=== PATIENT | female | born 2000 | race African-American/Black ===

== ENCOUNTER 2021-02-14 | Observation (INO) ==
[2021-02-14] MEDS ORDERED: ALBUT/IPRATROP 3MG/0.5MG NEB 3 ML VIAL INH STA (00:17)
[2021-02-14 00:29] LABS: Basophils # (auto) 0.02 K/uL (0-0.2); Basophils % (auto) 0.2 %; Eosinophils # (auto) 0.08 K/uL (0-0.5); Hematocrit (blood only) 40.9 % (37-47); Hemoglobin 13.1 g/dL (12.0-16.0); Immature Granulocytes # (auto) 0.01 K/uL (0.00-0.02); Immature Granulocytes % (auto) 0.1 %; Lymphocytes # (auto) 3.03 K/uL (1.2-3.4); Lymphocytes % (auto) 36.9 %; Mean Corpuscular Hemoglobin 26.1 pg (25-34); Mean Corpuscular Volume 81.5 fL (80-100); Mean Platelet Volume 9.5 fL (7.4-10.4); Monocytes # (auto) 0.81 K/uL (0.11-0.59); Monocytes % (auto) 9.9 %; Neutrophils # (auto) 4.26 K/uL (1.4-6.5); Neutrophils % (auto) 51.9 %; Platelet Count 366 K/uL (130-400); RDW Coefficient of Variation 15.4 % (11.5-14.5); RDW Standard Deviation 45.4 fL (36.4-46.3); Red Blood Count 5.02 M/uL (4.2-5.4); White Blood Count 8.21 K/uL (4.8-10.8)
[2021-02-14 00:46] LABS: BUN Creatinine Ratio 13.1 (10-20); Blood Urea Nitrogen 11 mg/dl (7-18); Calcium 9.3 mg/dl (8.5-10.1); Carbon Dioxide 25 mmol/L (21-32); Chloride 109 mmol/L (98-107); Creatinine Clr Calc Pharmacy 98.7 ml/min; Est GFR (African American) 111.9 ml/min; Est GFR (Non-African American) 96.6 ml/min; Glucose 96 mg/dl (70-99); Potassium 3.6 mmol/L (3.5-5.1); Sodium 139 mmol/L (136-145)
[2021-02-14 00:50] LABS: Troponin I < 0.015 ng/ml (0-0.045)
[2021-02-14] MEDS ORDERED: KETOROLAC TROMETHAMINE 15 MG/ML VIAL IV STA (00:53)
--- NOTE | 2021-02-14 00:54 | Emergency Department Note ---
History of Present Illness General Chief complaint: Respiratory Distress Stated complaint: STRUGGLING TO BREATH Time Seen by Provider: 02/14/21 00:42 History of Present Illness Maximum Pain Intensity: 10 This is a 20-year-old female that presents to the emergency department via private vehicle with complaints of "struggling to breathe". The patient notes a history of asthma. She states that when she awoke this morning she felt fine. Then she notes that she developed shortness of breath and chest pain. The chest pain is predominantly on the left side. She feels as though she cannot take a deep breath. She has never felt this way before. She notes that the week before this past Thanksgiving she had a fever but no other recent illness. The only long travel was that she had a 3-hour car ride home and then back here to school. Patient did take pantoprazole prior to arrival without relief. Current pain 10. Patient has completed her COVID-19 vaccination series. Patient denies any other pertinent past medical history beyond that of asthma. She does note a history of oral surgery. No allergies. Home Medications Medication Instructions Recorded Confirmed Type albuterol sulfate 90 mcg/actuation 1 inh INHALATION Q4 PRN 02/14/21 02/14/21 History aerosol inhaler norethindrone 1 mg-ethinyl 1 tab PO DAILY 02/14/21 02/14/21 History estradiol 20 mcg (21)-iron 75 mg (7) tablet (03/28 (28)) pantoprazole 20 mg tablet,delayed 20 mg PO DAILY PRN 02/14/21 02/14/21 History release Past Med/Surg History Medical History Asthma Surgical History Hx of oral surgery Social History Smoking Status: Never smoker Feels Safe at Home: Yes Review of Systems A total of 10 systems reviewed and were otherwise negative Physical Exam Vital Signs Vital Signs - 24 hr 02/14/21 00:03 02/14/21 00:23 02/14/21 00:34 Temperature 36.5 C Temperature Source Temporal Artery Scan Pulse Rate 139 H Pulse Rate [Left Finger] Pulse Rhythm [Left Finger] Respiratory Rate 24 Respiratory Effort / Characteristics Labored Short of Breath SOB on Exertion Tripoding Labored SOB on Exertion Respiratory Depth Respiratory Pattern Tachypnea Tachypnea Blood Pressure 126/82 Blood Pressure [Right Arm] Blood Pressure Mean 96 Blood Pressure Mean [Right Arm] Pulse Oximetry 100 Oxygen Delivery Method Room Air Room Air Sepsis Recent Fever Within 48 Hours No Sepsis New/Unexplained Change in Mental Status No Sepsis Action Taken by Nursing No Action Required Oxygen Flow Rate - Titration Pulse Oximetry Post Tiitration 02/14/21 00:35 02/14/21 00:48 02/14/21 01:50 Temperature Temperature Source Pulse Rate Pulse Rate [Left Finger] 116 H Pulse Rhythm [Left Finger] Respiratory Rate 24 Respiratory Effort / Characteristics Respiratory Depth Respiratory Pattern Blood Pressure Blood Pressure [Right Arm] Blood Pressure Mean Blood Pressure Mean [Right Arm] Pulse Oximetry 100 100 99 Oxygen Delivery Method Room Air Room Air Room Air Nasal Cannula Sepsis Recent Fever Within 48 Hours Sepsis New/Unexplained Change in Mental Status Sepsis Action Taken by Nursing Oxygen Flow Rate - Titration 2 Pulse Oximetry Post Tiitration 100 02/14/21 03:19 02/14/21 04:30 Temperature Temperature Source Pulse Rate Pulse Rate [Left Finger] 94 H 95 H Pulse Rhythm [Left Finger] Regular Respiratory Rate 18 20 Respiratory Effort / Characteristics Non-Labored Spontaneous Respiratory Depth Normal Respiratory Pattern Blood Pressure Blood Pressure [Right Arm] 115/77 112/86 Blood Pressure Mean Blood Pressure Mean [Right Arm] 89 94 Pulse Oximetry 100 98 Oxygen Delivery Method Room Air Room Air Sepsis Recent Fever Within 48 Hours Sepsis New/Unexplained Change in Mental Status Sepsis Action Taken by Nursing Oxygen Flow Rate - Titration Pulse Oximetry Post Tiitration VITAL SIGNS - Vital signs and nursing notes were reviewed. Tachycardic, otherwise stable. GENERAL -20-year-old female appearing her stated age who is in no acute distress but does display an increased rate of breathing and tachycardia. Communicates well with provider and answers questions appropriately. SKIN - Without rashes. No meningeal or petechial rash. HEAD - NC/AT. EYES - Sclera anicteric. EARS - No deformities of external structures noted on gross examination bilaterally. NOSE - Midline and without cyanosis. MOUTH/OROPHARYNX - Without perioral cyanosis. NECK - Neck with FROM. No nuchal rigidity. LUNGS - Chest wall symmetric without accessory muscle use, intercostals retractions, or central cyanosis. Normal vesicular breath sounds CTA B/L. No wheezes, rales, or rhonchi appreciated. CARDIAC -tachycardic. No murmur, rubs, or gallops appreciated. EXTREMITIES - No clubbing or peripheral cyanosis. +5/5 strength noted in UE/LE bilaterally. NEUROLOGIC - Cranial nerves II through XII grossly intact. PSYCH - A&O, and cooperates fully with examiner. Pt is very pleasant and interacts well with examiner. Course Administered Medications Discontinued Medications Albuterol (Albut/Ipratrop 3mg/0.5mg Neb 3 Ml Vial) 3 ml INH NOW STA Stop: 02/14/21 00:18 Last Admin: 02/14/21 00:23 Dose: 3 ml Documented by: [id number] Enoxaparin Sodium (Enoxaparin 80 Mg/0.8 Ml Syr) 80 mg SQ NOW ONE Stop: 02/14/21 05:56 Last Admin: 02/14/21 06:29 Dose: 80 mg Documented by: [id number] Enoxaparin Sodium (Enoxaparin Inj 120 Mg/0.8 Ml Syr) Confirm Administered Dose 120 mg .ROUTE .STK-MED ONE Stop: 02/14/21 06:25 Last Admin: 02/14/21 06:29 Dose: Not Given Documented by: [id number] Ioversol (Optiray 320 125ml) 120 ml IV ONCE ONE Stop: 02/14/21 01:55 Last Admin: 02/14/21 01:54 Dose: 120 ml Documented by: [id number] Ketorolac Tromethamine (Ketorolac Tromethamine 15 Mg/Ml Vial) 15 mg IV NOW STA Stop: 02/14/21 00:54 Last Admin: 02/14/21 01:02 Dose: 15 mg Documented by: [id number] Lorazepam (Lorazepam 1 Mg Tab) 0.5 mg SL NOW STA Stop: 02/14/21 01:42 Last Admin: 02/14/21 01:57 Dose: 0.5 mg Documented by: [id number] Medical Decision Making Laboratory Data Result diagrams: 02/14/21 00:15 02/14/21 00:15 Lab Results 02/14/21 02/14/21 02/14/21 Range/Units 00:15 00:15 00:15 WBC 8.21 (4.8-10.8) K/uL RBC 5.02 (4.2-5.4) M/uL Hgb 13.1 (12.0-16.0) g/dL Hct 40.9 (37-47) % MCV 81.5 (80-100) fL MCH 26.1 (25-34) pg MCHC 32.0 (32-36) g/dL RDW Std Deviation 45.4 (36.4-46.3) fL RDW Coeff of Brooke 15.4 H (11.5-14.5) % Plt Count 366 (130-400) K/uL MPV 9.5 (7.4-10.4) fL Immature Gran % (Auto) 0.1 % Neut % (Auto) 51.9 % Lymph % (Auto) 36.9 % [place] % (Auto) 9.9 % Eos % (Auto) 1.0 % Baso % (Auto) 0.2 % Neut # (Auto) 4.26 (1.4-6.5) K/uL Lymph # (Auto) 3.03 (1.2-3.4) K/uL [place] # (Auto) 0.81 H (0.11-0.59) K/uL Eos # (Auto) 0.08 (0-0.5) K/uL Baso # (Auto) 0.02 (0-0.2) K/uL Immature Gran # (Auto) 0.01 (0.00-0.02) K/uL PT (9.0-12.0) Seconds INR (0.9-1.1) APTT (21.0-31.0) Seconds PTT Ratio Protein S Activity Sodium 139 (136-145) mmol/L Potassium 3.6 (3.5-5.1) mmol/L Chloride 109 H (98-107) mmol/L Carbon Dioxide 25 (21-32) mmol/L Anion Gap 5.0 (3-11) BUN 11 (7-18) mg/dl Creatinine 0.87 (0.6-1.2) mg/dl Est Cr Clr Drug Dosing 98.7 ml/min Est GFR ( Amer) 111.9 ml/min Est GFR (Non-Af Amer) 96.6 ml/min BUN/Creatinine Ratio 13.1 (10-20) Glucose 96 (70-99) mg/dl Calcium 9.3 (8.5-10.1) mg/dl Total Bilirubin 0.3 (0.2-1) mg/dl Direct Bilirubin < 0.1 (0-0.2) mg/dl AST 15 (15-37) U/L ALT 34 (12-78) Alkaline Phosphatase 73 (45-117) U/L Troponin I < 0.015 (0-0.045) ng/ml Total Protein 7.7 (6.4-8.2) gm/dl Albumin 3.2 L (3.4-5.0) gm/dl TSH 1.710 (0.300-4.500) uIu/ml HCG, Qual Negative (Negative) SARS-CoV-2 (PCR) (Negative) Influenza Type A (PCR) (Neg) Influenza Type B (PCR) (Neg) RSV (RT-PCR) (Neg) 02/14/21 02/14/21 02/14/21 Range/Units 00:15 01:03 03:17 WBC (4.8-10.8) K/uL RBC (4.2-5.4) M/uL Hgb (12.0-16.0) g/dL Hct (37-47) % MCV (80-100) fL MCH (25-34) pg MCHC (32-36) g/dL RDW Std Deviation (36.4-46.3) fL RDW Coeff of Brooke (11.5-14.5) % Plt Count (130-400) K/uL MPV (7.4-10.4) fL Immature Gran % (Auto) % Neut % (Auto) % Lymph % (Auto) % [place] % (Auto) % Eos % (Auto) % Baso % (Auto) % Neut # (Auto) (1.4-6.5) K/uL Lymph # (Auto) (1.2-3.4) K/uL [place] # (Auto) (0.11-0.59) K/uL Eos # (Auto) (0-0.5) K/uL Baso # (Auto) (0-0.2) K/uL Immature Gran # (Auto) (0.00-0.02) K/uL PT 10.0 (9.0-12.0) Seconds INR 1.0 (0.9-1.1) APTT 25.7 (21.0-31.0) Seconds PTT Ratio 1.0 Protein S Activity Cancelled Sodium (136-145) mmol/L Potassium (3.5-5.1) mmol/L Chloride (98-107) mmol/L Carbon Dioxide (21-32) mmol/L Anion Gap (3-11) BUN (7-18) mg/dl Creatinine (0.6-1.2) mg/dl Est Cr Clr Drug Dosing ml/min Est GFR ( Amer) ml/min Est GFR (Non-Af Amer) ml/min BUN/Creatinine Ratio (10-20) Glucose (70-99) mg/dl Calcium (8.5-10.1) mg/dl Total Bilirubin (0.2-1) mg/dl Direct Bilirubin (0-0.2) mg/dl AST (15-37) U/L ALT (12-78) Alkaline Phosphatase (45-117) U/L Troponin I (0-0.045) ng/ml Total Protein (6.4-8.2) gm/dl Albumin (3.4-5.0) gm/dl TSH (0.300-4.500) uIu/ml HCG, Qual (Negative) SARS-CoV-2 (PCR) NEGATIVE (Negative) Influenza Type A (PCR) Negative (Neg) Influenza Type B (PCR) Negative (Neg) RSV (RT-PCR) Negative (Neg) Imaging Data Radiologist's Impression: Chest CTA 02/14/21 00:53 CT angio chest PE protocol CT DOSE: 353.47 mGy.cm HISTORY: 20 years-old Female with dyspnea, tachycardia. Acute shortness of breath with tachycardia and chest pain TECHNIQUE: Multiple CTA images of the chest were obtained after the intravenous administration of 120 ml Optiray. Coronal and sagittal MIPS were obtained from the axial data set and were submitted for review. All measurements were obtained according to NASCET criteria. A dose lowering technique was utilized adhering to the principles of ALARA. COMPARISON: Doppler study of same day FINDINGS: CTA: The heart is normal in size. There is no pericardial effusion. No thoracic aortic aneurysm or dissection. Satisfactory opacification of the pulmonary artery. Rest by motion artifact limits evaluation of the segmental and subsegmental branches. Segmental and subsegmental pulmonary emboli are noted within the left lower lobe. Possible additional small pulmonary emboli within the left upper lobe. No central pulmonary emboli are identified. No evidence of right heart strain. Normal thoracic aorta.Heart size is normal. CT CHEST: Unremarkable thyroid. Residual thymic tissue of the anterior mediastinum. No adenopathy. Trace left pleural effusion. Wedge-shaped 2.6 cm consolidation of the basal left lower lobe on image 53 series 4 with surrounding groundglass opacity. The central airways are patent. There is heterogeneity of the liver with suggestion of vascular shunting/perfu hi defect. Questioned hepatic steatosis. Unremarkable soft tissues. There is no acute fracture. IMPRESSION: 1. Segmental and subsegmental pulmonary emboli of the left lower lobe. No evidence of right heart strain. 2. Subpleural wedge-shaped consolidation of the left lower lobe measuring 2.6 cm is suggestive of a pulmonary infarct. 3. Trace left pleural effusion. ACT 112: Negative or not required by law. The above report was generated using voice recognition software. It may contain grammatical, syntax or spelling errors. Electronically signed by: Antwon Morales M.D. 02/14/2021 6:55 AM Venous Doppler Study 02/14/21 02:27 BILATERAL LOWER EXTREMITY VENOUS DOPPLER HISTORY: Acute pulmonary embolus PE, dyspnea COMPARISON STUDY: None. FINDINGS: There is normal compressibility, flow, and augmentation within the bilateral lower extremity deep venous systems. IMPRESSION: No DVT within the right or left lower extremity. ACT 112: Negative or not required by law. Electronically signed by: Antwon Morales M.D. 02/14/2021 6:56 AM CTA CHEST: Left lower lobe groundglass opacity concerning for focal pneumonitis. No pleural effusion or pneumothorax. Remainder of the lung parenchyma is normal. There are small pulmonary emboli within the left posterior basal segmental branches of the left lower lobe pulmonary artery. Small pulmonary embolus within the segmental branches of the apex of the left upper lobe. The RV/LV ratio is less than 1. Possible fatty infiltration throughout the liver with areas of decreased attenuation noted. Remainder of the visualized upper abdomen unremarkable. Radiologist: Lay Avalos MD Study ready at 01:59 and initial results transmitted at 02:08 Communications: Clear Time Type Notes 02/14/21 02:12 Call Doctor Regarding Oth er, called RENZO Limon on 02/14 02:12 (- 05:00) [facility] Narrative Patient was seen and evaluated as above in room D08. Review was performed of triage nursing notes and vital signs. After obtaining a thorough history and physical examination the above work up was performed. Patient presents to us today with shortness of breath and chest pain. She is tachycardic on arrival. Patient was seen during a period of high volume and acuity during the COVID-19 pandemic. The patient did have nursing protocol orders performed prior to me seeing the patient. She already had laboratory studies and nursing staff did note that she had wheezing and history of asthma and a DuoNeb was provided. On my examination of the patient the lungs are clear. The previously mentioned wheezing has resolved. She is saturating well on room air but is tachycardic. The patient does appear to be having increased work of breathing and also does appear to be mildly anxious. Options of care were discussed with the patient. While awaiting testing results the patient was given Toradol for her chest pain. Laboratory studies reveal no leukocytosis or concerning anemia. No emergent metabolic disturbance. Troponin negative. hCG negative. Influenza and Covid testing are negative. With the patient having chest pain, dyspnea, and tachycardia she was sent for a Stat CTA of the chest. Prior to being sent to the CT imaging area I did order the patient a small dose of Ativan. Patient was also placed on 2 L nasal cannula. Patient was feeling much more comfortable and relaxed. I was called by the radiologist regarding the CT scan result. Results as above. There are small pulmonary emboli within the left posterior basal segmental branches of the left lower lobe pulmonary artery. Small pulmonary embolus within the segmental branches of the apex of the left upper lobe. They did comment that there was no right heart strain. I informed the patient upon these findings. Her EKG reveals sinus tachycardia rate of [address] elevation. QTc 446. QRS 70. Patient then sent for bilateral lower extremity Doppler studies and hypercoag panel was ordered. Case discussed with the hospitalist. Patient amenable to staying. Patient happy with plan of care. Please refer to further documentation regarding her stay. Options of anticoagulation with the hospitalist service discussed and patient was anticoagulated by the hospitalist service. Case was discussed with the attending physician. An order was placed for continuous cardiac monitoring. The monitor shows a rate of 94 with sinus rhythm. GCS: 15 In the evaluation and treatment of this patient, the following differential diagnoses were considered: OR, ASC, Dysrhythmia, Angina, Mediastinitis, GERD, Esophagitis, PE, Pneumonia, Bronchitis, Costochondritis, Rib Fracture, Zoster, among others. Impression & Plan Pulmonary embolism and infarction, Chest pain, Acute dyspnea Discharge Plan Visit Data Chief Complaint: Respiratory Distress Stated Complaint: STRUGGLING TO BREATH ED Provider: Tana Whittington ED Midlevel Provider: Sukhwinder Limon Discharge Problem: Pulmonary embolism and infarction, Chest pain, Acute dyspnea Patient Disposition: Admitted As Inpatient Condition: Good Discharge Instructions Interventions: ED Discharge Assessment Last Done: 02/14/21 05:53
[2021-02-14 01:05] LABS: Pregnancy Test, Serum Negative (Negative)
[2021-02-14 01:10] LABS: Alanine Aminotransferase 34 (12-78); Albumin Level 3.2 gm/dl (3.4-5.0); Alkaline Phosphatase 73 U/L (45-117); Aspartate Aminotransferase 15 U/L (15-37); Bilirubin Direct < 0.1 mg/dl (0-0.2); Bilirubin,Total 0.3 mg/dl (0.2-1); Total Protein 7.7 gm/dl (6.4-8.2)
[2021-02-14] MEDS ORDERED: LORazepam 1 MG TAB SL STA (01:41)
[2021-02-14 01:47] LABS: Influenza A virus by PCR Negative (Neg); Influenza B virus by PCR Negative (Neg); RSV by PCR Negative (Neg); SARS CoV2 RNA(COVID-19) InHosp NEGATIVE (Negative)
[2021-02-14] MEDS ORDERED: OPTIRAY 320 125ml IV ONE (01:54)
[2021-02-14 03:18] LABS: Partial Thromboplastin Time 25.7 Seconds (21.0-31.0)
--- NOTE | 2021-02-14 04:45 | History & Physical Report ---
Date of Service February 14, 2021 Assessment & Plan (1) Pulmonary embolism: Plan: 20 yo F w/ pMHx. of asthma, on control presents with chest pain found to have PE admitted to med/surg for observation PE - started Lovenox 1mg/kg one time dose - would convert to DOAC today - monitor on tele for arrhythmia - discussed with patients potential complications of PE including pneumonia Asthma - Albuterol PRN DVT: Lovenox Diet: regular Code: full History of Present Illness Chief Complaint: chest pain Primary Care Provider: NO PCP Tad Caputo has a past medical history of asthma presenting with chest pain. She noted the pain 9:30 AM that she described it as her, "heart hurt". The pain improved with sleep and then worsened. The pain was in her central chest and went up her neck and down her arm. She noted fast breathing and associated shortness of breath. She tried using Albuterol with no improvement in her symptoms. The pain improved with walking. Her pain has improved since coming to the hospital. He is on control and has been on it for about 1 year. She was on a [address] [facility]. ED course: Albuterol, Toradol, Ativan Home Medications Medication Instructions Recorded Confirmed Type albuterol sulfate 90 mcg/actuation 1 inh INHALATION Q4 PRN 02/14/21 02/14/21 History aerosol inhaler pantoprazole 20 mg tablet,delayed 20 mg PO DAILY PRN 02/14/21 02/14/21 History release rivaroxaban 15 mg tablet (Xarelto) 15 mg PO BID 21 Days #42 tab 02/14/21 Rx Past Med/Surg History Medical History Asthma Surgical History Hx of oral surgery Social History Smoking Status: Never smoker Preferred Language: Uzbek Feels Safe at Home: Yes Review of Systems Review of Systems: Constitutional: denies fevers, chills, nausea, vomiting, night sweats Head: denies trauma Neurologic: denies syncope focal weakness admits presyncope ENT: denies rhinorrhea, stuffiness, sneezing, sore throat Cardiac: denies palpitations, leg edema admits chest pain GI: denies diarrhea, constipation : denies urgency, dysuria, polyuria Physical Exam Constitutional: well developed and well nourished; no acute distress Eyes: PERRL, conjunctivae normal, anicteric sclerae ENMT: external ear and nose normal, oropharynx normal Neck: normal visual inspection Respiratory: normal respiratory effort, lungs clear to auscultation Cardiovascular: RRR, no murmur, no edema Skin: no rashes, warm and dry Psychiatric: A+Ox3, euthymic affect Results & Data Results & Data ([facility]) Vital Signs (Past 12 Hours) Vital Signs Temp Pulse Pulse Resp BP BP Pulse Ox 02/14/21 03:19 94 H 18 115/77 100 02/14/21 01:50 99 02/14/21 00:48 100 02/14/21 00:35 116 H 24 100 02/14/21 00:03 36.5 C 139 H 24 126/82 100 CBC Results Results Complete Blood Count Results: RBC 5.02 M/uL (4.2-5.4) 02/14/21 WBC 8.21 K/uL (4.8-10.8) 02/14/21 Hgb 13.1 g/dL (12.0-16.0) 02/14/21 Hct 40.9 % (37-47) 02/14/21 Plt Count 366 K/uL (130-400) 02/14/21 Chemistry ([facility]) Results BMP Results: Sodium 139 mmol/L (136-145) 02/14/21 Potassium 3.6 mmol/L (3.5-5.1) 02/14/21 Chloride 109 mmol/L (98-107) H 02/14/21 Carbon Dioxide 25 mmol/L (21-32) 02/14/21 Anion Gap 5.0 (3-11) 02/14/21 BUN 11 mg/dl (7-18) 02/14/21 Creatinine 0.87 mg/dl (0.6-1.2) 02/14/21 Glucose 96 mg/dl (70-99) 02/14/21 Supervising Physician Co-Signing Physician Notes Attending addendum: I have physically seen this patient, have supervised the medical residents activities, and agree with the H&P unless as otherwise noted. Assessment and Plan: Pulmonary emboli- Left posterior basal segment branch and left upper lobe apex Order lower extremity venous Dopplers bilaterally Give Lovenox 1 mg/kg x 1 tonight, and can be adjusted to oral medications in a.m. Hypercoagulable profile Hold OCPs Question of left lower lobe focal pneumonia as to whether it may be a pulmonary infarct. Will await confirmation from our radiology Remaining orders and notations as noted Resident Activity Tracking Resident Involvement: Resident Care Provided Care Provided: Adult Hospital Medicine
[2021-02-14] MEDS ORDERED: ALBUTEROL HFA 8 GM INHALER INH PRN (05:55)
[2021-02-14] MEDS ORDERED: PANTOprazole 40 MG TAB PO PRN (05:55)
[2021-02-14] MEDS ORDERED: ENOXAPARIN 80 MG/0.8 ML SYR SQ ONE (05:55)
[2021-02-14] MEDS ORDERED: ENOXAPARIN INJ 120 MG/0.8 ML SYR ONE (06:24)
--- NOTE | 2021-02-14 06:57 | Ultrasound Report ---
BILATERAL LOWER EXTREMITY VENOUS DOPPLER HISTORY: Acute pulmonary embolus PE, dyspnea COMPARISON STUDY: None. FINDINGS: There is normal compressibility, flow, and augmentation within the bilateral lower extremit y deep venous systems. IMPRESSION: No DVT within the right or left lower extremity. ACT 112: Negative or not required by law. Electronically signed by: Antwon Morales M.D. 02/14/2021 6:56 AM
--- NOTE | 2021-02-14 06:57 | CT Scan Report ---
CT angio chest PE protocol CT DOSE: 353.47 mGy.cm HISTORY: 20 years-old Female with dyspnea, tachycardia. Acute shortness of breath with tachycardia and chest pain TECHNIQUE: Multiple CTA images of the chest were obtained after the intravenous administration of 120 ml Optiray. Coronal and sagittal MIPS were obtained from the axial data set and were submitted for review. All measurements were obtained according to NASCET criteria. A dose lowering technique was u tilized adhering to the principles of ALARA. COMPARISON: Doppler study of same day FINDINGS: CTA: The heart is normal in size. There is no pericardial effusion. No thoracic aortic aneurysm or dissect ion. Satisfactory opacification of the pulmonary artery. Rest by motion artifact limits evaluation of the segmental and subsegmental branches. Segmental and subsegmental pulmonary emboli are noted withi n the left lower lobe. Possible additional small pulmonary emboli within the left upper lobe. No cent ral pulmonary emboli are identified. No evidence of right heart strain. Normal thoracic aorta.Heart s ize is normal. CT CHEST: Unremarkable thyroid. Residual thymic tissue of the anterior mediastinum. No adenopathy. Trace left p leural effusion. Wedge-shaped 2.6 cm consolidation of the basal left lower lobe on image 53 series 4 with surrounding groundglass opacity. The central airways are patent. There is heterogeneity of the liver with suggestion of vascular shunting/perfusion defect. Questioned hepatic steatosis. Unremarkable soft tissues. There is no acute fracture. IMPRESSION: 1. Segmental and subsegmental pulmonary emboli of the left lower lobe. No evidence of right heart str ain. 2. Subpleural wedge-shaped consolidation of the left lower lobe measuring 2.6 cm is suggestive of a p ulmonary infarct. 3. Trace left pleural effusion. ACT 112: Negative or not required by law. The above report was generated using voice recognition software. It may contain grammatical, syntax o r spelling errors. Electronically signed by: Antwon Morales M.D. 02/14/2021 6:55 AM
--- NOTE | 2021-02-14 10:38 | Discharge Summary ---
Date of Service February 14, 2021 Admission HPI Per Admitting Provider Nictamaraamadou Caputo has a past medical history of asthma presenting with chest pain. She noted the pain 9:30 AM on Thursday morning presented that she described as her "heart hurt". The pain initially improved with sleep but then worsened. The pain was in her central chest and went up her neck and down her arm. She noted fast breathing and associated shortness of breath. She tried using Albuterol with no improvement in her symptoms. The pain improved with walking. Her pain has improved since coming to the hospital. He is on control and has been on it for about 1 year. She was on a [address] hospital for special care. ED course: Albuterol, Toradol, Ativan Admission Exam Per Admitting Provider Constitutional: well developed and well nourished; no acute distress Eyes: PERRL, conjunctivae normal, anicteric sclerae ENMT: external ear and nose normal, oropharynx normal Neck: normal visual inspection Respiratory: normal respiratory effort, lungs clear to auscultation Cardiovascular: RRR, no murmur, no edema Skin: no rashes, warm and dry Psychiatric: A+Ox3, euthymic affect Principal Diagnosis Pulmonary embolus Discharge Exam Constitutional WD/WN, vitals as above Respiratory normal respiratory effort, lungs clear to auscultation Cardiovascular RRR, no murmur, no edema Gastrointestinal (Abdomen) normal bowel sounds, soft, nontender, no hepatosplenomegaly Discharge Data Consultations 02/14/21 02:32 ED Decision to Admit Stat Ordered Studies 02/14/21 00:53 CT angio chest PE protocol Urgent 02/14/21 02:27 US venous doppler [facility] Urgent Hospital Course (1) Pulmonary embolism: 20 yo F w/ pMHx. of asthma, on oral combined contraceptive who presents with chest pain found to have PE admitted to med/surg for observation Pulmonary embolus - started Lovenox 1mg/kg one time dose; simplified PESI score of 0, low risk. - would convert to DOAC today (awaiting DOAC drug check) - monitor on tele for arrhythmia; no signs of arrhythmia noted on EKG telemetry - discussed with patients potential complications of PE including pneumonia -Schedule patient for follow-up outpatient for transition of care. Asthma - Albuterol PRN DVT: Lovenox Diet: regular Code: full Total Time Total Time Spent Total Time Spent (In Minutes): <30 Discharge Plan Discharge Items Patient Disposition: Home - Self-Care Reason For Visit: PE Discharge Diagnosis: Pulmonary embolus acute Condition on Discharge: Good Activity: Per Instructions section Non-emergency contact: Primary Care Provider Call non-emergency contact if: you have any medication questions and your symptoms worsen Follow-up/Referrals: Kendall Ellis MD [Resident] - PCP,NO [Primary Care Provider] - Diet: Regular Addtl Attending Provider Instructions: You were admitted to the hospital for an acute pulmonary embolus. You were treated with Lovenox, a blood thinner, to reduce your risk of clotting any further, and pain medication to manage your chest pain symptoms. A discharge summary will be sent to your primary care physician to ensure continuity of care. Please bring this discharge summary with you to your next office appointment so that your provider can review it at that time. Follow-up appointments: * You have an appointment with Dr. Ellis on February 20 at 3:50 PM. If you are unable to make this appointment, or have any other questions, their office can be reached at [phone]. * Keep all your follow-up appointments as already scheduled. If you cannot make an appointment, notify your provider. Medications: Your medication list has been reviewed and reconciled upon discharge to ensure accuracy and continuity of care. An updated list of all your medications is included with your hospital discharge paperwork. Please review this list closely, and make note of any changes. * We sent a new medication called Xarelto to your pharmacy. Take Xarelto 15 mg twice daily for 21 days. * We also stopped your oral contraceptive pills. Please do not take until you have met with your primary care provider. Take your medications as instructed; do not skip a dose of your medicines. Make sure all of your doctors know every medicine you are taking (including fqhx-ayj-iddlcyu medicines, vitamins, and supplements). Call your primary care provider before taking any new medicines (including xebj-ybs-cvxtunh medicines, vitamins, and supplements), because some of these may interact with your current medications, or may make your symptoms worse. Tell your primary care provider if you cannot afford your medications. CONTACT YOUR PRIMARY CARE PROVIDER if you experience any of the following: * Sudden shortness of breath with chest pain. * Difficulty following your treatment plan, or difficulty taking medications CALL 911 OR GO TO THE EMERGENCY DEPARTMENT if you experience any of the following: * Sudden, severe abdominal pain or nausea/vomiting * Severe chest pain, or chest pain that radiates (moves) to your jaw or arm * Sudden, severe shortness of breath or difficulty breathing Thank you for allowing us to participate in your care. Pending Studies at Discharge: No Stand-Alone Forms: [employer], Work/School Release, Smoking Cessation Medications and DC Order Prescriptions: New Xarelto 15 mg tablet 15 mg PO BID 21 Days Qty: 42 RF: 0 Continued pantoprazole 20 mg tablet,delayed release (DR/EC) 20 mg PO DAILY PRN (Reason: Acid Reflux) RF: 0 albuterol sulfate 90 mcg/actuation HFA aerosol inhaler 1 inh INHALATION Q4 PRN (Reason: Shortness Of Breath Or Wheezing) RF: 0 Discontinued norethindrone-e.estradiol-iron [ FE 03/28 (28)] 1 mg-20 mcg (21)/75 mg (7) tablet 1 tab PO DAILY RF: 0 Discharge Orders: Discharge Order (Routine); Ordered 02/14/21 Ordered By: Kendall Ellis Admission Data Admit Date/Time: 02/14/21 04:59 Attending Provider: Alfredo Mathis Admit Provider: Thiago Flores Primary Care Provider: PCP,NO Other Providers: Margarito Jacob Other Interventions: Discharge Summary Assessment (RN) Last Done: 02/14/21 12:38 Supervising Physician Co-Signing Physician Notes I personally examined the patient and verified all savage points of history and exam, discussed case, and agree with decision making with Dr Ellis Feeling better. Chest pain resolved. No new complaints. No significant shortness of breath. Feels up to getting out of the hospital. Vitals noted, in general she is awake and alert pleasant no distress. HEENT normocephalic atraumatic mucous membranes moist. Breathing unlabored no accessory muscle use good effort. Skin shows no rashes no pallor or icterus. Neuro without focal deficits. Pulmonary embolistable for home on Xarelto. Close outpatient follow-up. The conundrum would be whether or not to call her OCPs a major or minor reversible provoking factor, as this would have significant implications on long-term management. It is hard to call something that millions of women take without complication a major reversible provoking factor and feels safe that she will not have recurrent thromboembolic events given her 5-year risk, and at the same time it would be hard to have a 20-year-old on open ended anticoagulation with a reversible risk factor "on the table"to that end, while certainly not exhaustive of all hypercoagulable disorders known/unknown, hypercoagulable panel could be helpful in her situationgiven that if she test positive for anything that is known to promote venous thromboembolic disease, then it would be more favorable to leave her on anticoagulation open ended. Work-up has been sent, is pending. Close outpatient follow-up, stable for home.
--- NOTE | 2021-02-14 19:38 | Billing Data ---
Date of Service February 14, 2021 Coding Level of Care Code 62201 OBS Care - Discharge
--- NOTE | 2021-02-14 19:58 | Billing Data ---
Date of Service February 14, 2021 Coding Level of Care Code INT OBSERVATION CARE 70M LVL 3
--- NOTE | 2021-02-14 22:19 | Electrocardiogram Report ---
Test Reason : Blood Pressure : / mmHG Vent. Rate : 110 BPM Atrial Rate : 110 BPM P-R Int : 140 ms QRS Dur : 070 ms QT Int : 330 ms P-R-T Axes : 071 074 060 degrees QTc Int : 446 ms Poor data quality, interpretation may be adversely affected Sinus tachycardia Possible Left atrial enlargement Borderline ECG No previous ECGs available Confirmed by Ramses Alexandre ([id number]) on 02/14/2021 10:19:31 PM Referred By: REFERRED SELF Confirmed By:Ramses Alexandre
[2021-02-16 00:12] LABS: Anti Cardiolipin Ab IgG <2.0 GPL-U/mL; Anti Cardiolipin Ab IgM <2.0 MPL-U/mL; Anti-Thrombin III Activity 112 % normal (80-135); PTT LA Screen 33 sec (<=40); Protein S Functional(Activity) 58 % (60-140)
[2021-02-16 08:11] LABS: B2 Glycoprotein IgG <2.0 U/mL (<20.0); B2 Glycoprotein IgM 3.2 U/mL (<20.0)
[2021-02-21 03:22] LABS: Factor 5 Mutation NEGATIVE
== END 2021-02-14 13:10 | disposition home or self-care (01) ==
LOC: EDINP → ED → SUATTDRO 04:59 → EDINP 05:53